=== PATIENT | male | born 1990 | race African-American/Black ===

== ENCOUNTER 2017-12-11 09:50 | Inpatient (IN) | payer OTHER ==
--- NOTE | 2017-12-11 10:28 | PDOC ---
History of Present Illness - General History Source: Patient Exam Limitations: No Limitations - History of Present Illness Initial Comments: 12/11/17 11:32 Patient is a 27 year old male with a significant past medical history of Cervical Spondylosis and instability, who was sent by physician to the ED with complaints of right hand numbness that began this morning. Patient reports having a herniated disk in his neck that he states has been affected sensation in his right hand since earlier this year. He reports waking up this morning with complete right hand numbness with a sensation that his hand was swollen with fluid, prompting him to call Dr. Donovan who advise him to come into the ED for Pre Op and further evaluations. 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 Denies chest pain, Sob. Denies nausea, vomiting. Denies fevers, chills. Denies tingling. Denies contact with sick individuals. Denies trauma to affected area. Denies any other symptoms. Allergies: None Social history: [place] in May 2017. Works as make up artist. Current smoker ( pack per day). Social alcohol use. Daily marijuana use. Surgical history: None PMD: Dr. Gutierrez Neurosurgery: Dr. Donovan <Reji Springer - Last Filed: 12/11/17 11:08> <Zohra Galan - Last Filed: 12/11/17 14:06> - General Chief Complaint: Revisit, Lab Variance Stated Complaint: PRE-OP Time Seen by Provider: 12/11/17 10:28 Past History <Reji Springer - Last Filed: 12/11/17 11:08> - Past Medical History Asthma: Yes COPD: No - Suicide/Smoking/Psychosocial Hx Smoking History: Current every day smoker Have you smoked in the past 12 months: Yes Number of Cigarettes Smoked Daily: 10 Information on smoking cessation initiated: No 'Breaking Loose' booklet given: 12/06/17 Hx Alcohol Use: Yes (social) Drug/Substance Use Hx: Yes Substance Use Type: Marijuana Hx Substance Use Treatment: Yes <Zohra Galan - Last Filed: 12/11/17 14:06> - Past Medical History Allergies/Adverse Reactions: Allergies Allergy/AdvReac Type Severity Reaction Status Date / Time No Known Allergies Allergy Verified 12/11/17 09:58 Home Medications: Ambulatory Orders Diclofenac Sodium [Diclofenac Sodium ER] 100 mg PO DAILY 12/06/17 Gabapentin 600 mg PO HS 12/06/17 Naproxen 250 mg PO PRN 12/06/17 Review of Systems - Review of Systems Able to Perform ROS?: Yes Comments:: 12/11/17 11:32 GENERAL/CONSTITUTIONAL: No fever or chills. No weakness. HEAD, EYES, EARS, NOSE AND THROAT: No change in vision. No ear pain or discharge. No sore throat. GASTROINTESTINAL: No nausea, vomiting, diarrhea or constipation. GENITOURINARY: No dysuria, frequency, or change in urination. CARDIOVASCULAR: No chest pain or shortness of breath. RESPIRATORY: No cough, wheezing, or hemoptysis. MUSCULOSKELETAL: +Right hand numbness. No joint or muscle swelling or pain. No neck or back pain. SKIN: No rash NEUROLOGIC: No headache, vertigo, loss of consciousness, or change in strength/ sensation. ENDOCRINE: No increased thirst. No abnormal weight change. HEMATOLOGIC/LYMPHATIC: No anemia, easy bleeding, or history of blood clots. ALLERGIC/IMMUNOLOGIC: No hives or skin allergy. All Other Systems: Reviewed and Negative <Reji Springer - Last Filed: 12/11/17 11:08> *Physical Exam - Vital Signs Last Vital Signs Temp Pulse Resp BP Pulse Ox 98.9 F 87 18 124/75 99 12/11/17 09:54 12/11/17 09:54 12/11/17 09:54 12/11/17 09:54 12/11/17 09:54 <Reji Springer - Last Filed: 12/11/17 11:08> - Vital Signs Last Vital Signs Temp Pulse Resp BP Pulse Ox 98.9 F 87 18 124/75 99 12/11/17 09:54 12/11/17 09:54 12/11/17 09:54 12/11/17 09:54 12/11/17 09:54 - Physical Exam Comments: GENERAL: Awake, alert, and fully oriented, in no acute distress HEAD: No signs of trauma EYES: PERRLA, EOMI, sclera anicteric, conjunctiva clear ENT: Auricles normal inspection, hearing grossly normal, nares patent, oropharynx clear without exudates. Moist mucosa NECK: Normal ROM, supple, no lymphadenopathy, JVD, or masses LUNGS: Breath sounds equal, clear to auscultation bilaterally. No wheezes, and no crackles HEART: Regular rate and rhythm, normal S1 and S2, no murmurs, rubs or gallops ABDOMEN: Soft, nontender, normoactive bowel sounds. No guarding, no rebound. No masses EXTREMITIES: Normal range of motion, no edema. No clubbing or cyanosis. No cords, erythema, or tenderness NEUROLOGICAL: Cranial nerves II through XII grossly intact. Normal speech, normal gait. Decreased sensation to the R hand, dec machine installer strength. Remainder of extremities with strength and sensation intact. SKIN: Warm, Dry, normal turgor, no rashes or lesions noted. SPINE: No step-offs. No midline tenderness. <Zohra Galan - Last Filed: 12/11/17 14:06> ED Treatment Course - LABORATORY CBC & Chemistry Diagram: 12/11/17 10:50 12/11/17 10:50 - ADDITIONAL ORDERS Additional order review: 12/11/17 10:50 RBC 4.97 MCV 86.6 MCHC 35.3 RDW 13.6 MPV 7.6 Neutrophils % 50.5 Lymphocytes % 35.1 Monocytes % 11.0 H Eosinophils % 2.5 Basophils % 0.9 <Reji Springer - Last Filed: 12/11/17 11:08> - LABORATORY CBC & Chemistry Diagram: 12/11/17 10:50 12/11/17 10:50 <Zohra Galan - Last Filed: 12/11/17 14:06> Medical Decision Making - Medical Decision Making 12/11/17 10:59 Case d/w Dr. Donovan, I will obtain stat MRI cervical spine and keep patient NPO in case he requires surgery today. D/w pathology tech, will fit him into the schedule so he can have the MRI today. 12/11/17 11:[address] Donovan. He requested c-collar. He is discussing with OR to book his procedure. 12/11/17 12:38 D/w Dr. Donovan. He would like to delay surgery, will start a course of decadron 4mg every 6 hours, then likely surgery on Tuesday (it is currently Tuesday). <Zohra Galan - Last Filed: 12/11/17 14:06> *DC/Admit/Observation/Transfer - Attestations Scribe Attestion: 12/11/17 11:32 Documentation prepared by Reji Springer, acting as medical file clerk for Zohra Galan MD. <Reji Springer - Last Filed: 12/11/17 11:08> - Discharge Dispostion Decision to Admit order: Yes <Zohra Galan - Last Filed: 12/11/17 14:06> Diagnosis at time of Disposition: Cervical spondylosis with radiculopathy - Discharge Dispostion Condition at time of disposition: Stable
[2017-12-11] MEDS: SODIUM CHLORIDE 1,000 ML IV SCH (10:49)
[2017-12-11 10:56] LABS: BASO % 0.9 % (0-2.0); EOS % 2.5 % (0-4.5); HEMOGLOBIN 15.2 GM/dL (11.7-16.9); LYMPH % 35.1 % (8-40); MCH 30.6 pg (25.7-33.7); MCHC 35.3 g/dl (32.0-35.9); MEAN CELL VOLUME 86.6 fl (80-96); MEAN PLT VOLUME 7.6 fl (7.5-11.1); NEUT % 50.5 % (42.8-82.8); PLATELET COUNT 338 K/MM3 (134-434); RBC 4.97 M/mm3 (4.00-5.60); RDW 13.6 % (11.9-15.9); WHITE BLOOD COUNT 7.4 K/mm3 (4.0-10.0)
[2017-12-11 11:18] LABS: ALBUMIN 4.3 g/dl (3.4-5.0); ANION GAP 6 (8-16); BILIRUBIN,TOTAL 0.4 mg/dL (0.2-1.0); BLOOD UREA NITROGEN 18 mg/dL (7-18); CALCIUM 8.8 mg/dL (8.5-10.1); CHLORIDE 104 mmol/L (98-107); CO2 28 mmol/L (21-32); CREATININE 0.9 mg/dL (0.7-1.3); GLUCOSE,RANDOM 83 mg/dL (74-106); SGPT/ALT 46 U/L (12-78); SODIUM 138 mmol/L (136-145); TOT PROT 7.8 g/dl (6.4-8.2)
[2017-12-11 11:25] LABS: ALK PHOS 52 U/L (45-117)
[2017-12-11 11:26] LABS: POTASSIUM 4.3 mmol/L (3.5-5.1); SGOT/AST 32 U/L (15-37)
[2017-12-11 11:31] LABS: PROTHROMBIN TIME (PATIENT) 11.3 SEC (9.7-13.0)
[2017-12-11 11:34] LABS: ACTIVATED PTT 30.7 SECONDS (26.9-34.4)
[2017-12-11] MEDS ORDERED: DEXAMETHASONE SOD PHOSPHATE 4 MG/1 ML VIAL IVPUSH ONE (12:33)
[2017-12-11] MEDS ORDERED: DEXAMETHASONE SOD PHOSPHATE 4 MG/1 ML VIAL ONE ×2 (12:47→12:48)
--- NOTE | 2017-12-11 14:32 | HP ---
CHIEF COMPLAINT: numbness and weakness in right upper limb. PCP: jt HISTORY OF PRESENT ILLNESS: 27 y/o male with past medical h/o fall in 2016 from 5th floor was sent in by Dr oconnor for worsening numbness and weakness in right upper limb. Patient states that he was tingling sensation in is R upper linm from 2016 whic is getting worse, he started noticiing numbness around 6 months ago which is also getting worse. Numbness and tingling gets worse when he lies down. This morning he notices a weakness in his right upper limb. He also reports that he alos have some numbness in right lower limb but denies weakness in rigyht lower limb. Denies urine and fecal incontinence. 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 ER course was notable for: (1)cbc, cmp, pt/inr (2)MRI (3) Recent Travel: no PAST MEDICAL HISTORY: Asthma last episode 2 years ago, chronic pain in shoulder , elbow, knee and lower back for which he goes to PT PAST SURGICAL HISTORY: none Social History: Smokin/2 pck a day since mar 2017 Alcohol: social Drugs: daily marijuana use 3- 4 times a day Family History: not relevent Allergies No Known Allergies Allergy (Verified 12/11/17 09:58) HOME MEDICATIONS: Home Medications Medication Instructions Recorded Diclofenac Sodium [Diclofenac 100 mg PO DAILY 12/06/17 Sodium ER] Gabapentin 600 mg PO HS 12/06/17 Naproxen 250 mg PO PRN 12/06/17 REVIEW OF SYSTEMS CONSTITUTIONAL: Absent: fever, chills, diaphoresis, generalized weakness, malaise, loss of appetite, weight change HEENT: Absent: rhinorrhea, nasal congestion, throat pain, throat swelling, difficulty swallowing, mouth swelling, CARDIOVASCULAR: Absent: chest pain, syncope, palpitations, irregular heart rate, lightheadedness , peripheral edema RESPIRATORY: Absent: cough, shortness of breath, dyspnea with exertion, GASTROINTESTINAL: Absent: abdominal pain, abdominal distension, nausea, vomiting, constipation, GENITOURINARY: Absent: dysuria, frequency, urgency, SKIN: Absent: rash, itching, pallor HEMATOLOGIC/IMMUNOLOGIC: Absent: easy bleeding, easy bruising, ENDOCRINE: Absent: unexplained weight gain, unexplained weight loss, NEUROLOGIC: Absent: headache,dizziness, unsteady gait, seizure, mental status changes, bladder or bowel incontinence PSYCHIATRIC: Absent: anxiety, depression, PHYSICAL EXAMINATION Vital Signs - 24 hr 12/11/17 12/11/17 09:54 12:13 Temperature 98.9 F Pulse Rate 87 Pulse Rate [ 72 Apical] Respiratory 18 17 Rate Blood Pressure 124/75 Blood Pressure 113/72 [Left Arm] O2 Sat by Pulse 99 100 Oximetry (%) GENERAL: Awake, alert, and fully oriented, in no acute distress. wearing a cervical collar HEAD: Normal with no signs of trauma. EYES: Pupils equal, round and reactive to light, extraocular movements intact, EARS, NOSE, THROAT: oropharynx clear without exudates. Moist mucous membranes. NECK: Normal range of motion, supple without lymphadenopathy, LUNGS: Breath sounds equal, clear to auscultation bilaterally. No wheezes, and no crackles. No accessory muscle use. HEART: Regular rate and rhythm, normal S1 and S2 without murmur, rub or gallop. ABDOMEN: Soft, nontender, not distended, normoactive bowel sounds, no guarding, no rebound, no masses. MUSCULOSKELETAL: Normal range of motion at all joints. No bony deformities UPPER EXTREMITIES: 2+ pulses, warm, well-perfused. No cyanosis. No clubbing. No peripheral edema. LOWER EXTREMITIES: warm, No calf tenderness. No peripheral edema. NEUROLOGICAL: Cranial nerves II-XII intact. Normal speech. power R upper and lower limb slightly less then left. Left b/l upper and lower limb power 5/5. sensation to touch less on right upper limb. PSYCHIATRIC: Cooperative. Good eye contact. SKIN: Warm, dry, Laboratory Results - last 24 hr 12/11/17 12/11/17 12/11/17 10:50 10:50 10:50 WBC 7.4 RBC 4.97 Hgb 15.2 Hct 43.0 MCV 86.6 MCH 30.6 MCHC 35.3 RDW 13.6 Plt Count 338 MPV 7.6 Neutrophils % 50.5 Lymphocytes % 35.1 Monocytes % 11.0 H Eosinophils % 2.5 Basophils % 0.9 Nucleated RBC % 0 PT with INR 11.30 INR 1.00 PTT (Actin FS) 30.7 Sodium 138 Potassium 4.3 Chloride 104 Carbon Dioxide 28 Anion Gap 6 L BUN 18 Creatinine 0.9 Creat Clearance w eGFR > 60 Random Glucose 83 Calcium 8.8 Total Bilirubin 0.4 AST 32 ALT 46 Alkaline Phosphatase 52 Total Protein 7.8 Albumin 4.3 Blood Type Antibody Screen 12/11/17 12/11/17 10:50 12:20 WBC RBC Hgb Hct MCV MCH MCHC RDW Plt Count MPV Neutrophils % Lymphocytes % Monocytes % Eosinophils % Basophils % Nucleated RBC % PT with INR INR PTT (Actin FS) Sodium Potassium Chloride Carbon Dioxide Anion Gap BUN Creatinine Creat Clearance w eGFR Random Glucose Calcium Total Bilirubin AST ALT Alkaline Phosphatase Total Protein Albumin Blood Type AB POSITIVE AB POSITIVE Antibody Screen Negative Negative ASSESSMENT/PLAN: 27 y/o male with past medical h/o fall in 2016 from 5th floor was sent in by Dr oconnor for worsening numbness and weakness in right upper limb. Cervical spondylosis with rediculopathy with weakness in right upper limb Neurosurgery consulted Dr tai. NS advised for dexamethasope 4mg q6h. Patient is posted for surgery on tuesday. Cervical collar. BGM as patinet is on dexa. Pain control with acetaminopphen. type and screen. INR 1.0 Tobacco dependence. smokes 1/2 a day nicotine patch 14mg Fluid: orally allowed electrolyte : no abnormality. nutrition: regular diet dvt pro: scd gi pro: [place] dispo: med surg. Visit type - Emergency Visit Emergency Visit: Yes ED Registration Date: 12/11/17 Care time: The patient presented to the Emergency Department on the above date and was hospitalized for further evaluation of their emergent condition. - New Patient This patient is new to me today: Yes Date on this admission: 12/11/17 - Critical Care Critical Care patient: No Hospitalist Screening - Colonoscopy Questionnaire Colonoscopy Questionnaire: Colonoscopy Questionnaire - Patient: 50 - 75 years old and never had a screening colonoscopy: Unknown History of colon or rectal polyps, or CA: Unknown History of IBD, Crohn's disease or UC: Unknown History of abdominal radiation therapy as a child: Unknown - Relative: 1 with colon or rectal CA, or polyps at age 60 or younger: Unknown Colon or rectal CA diagnosed at age 45 or younger: Unknown Multiple relatives with colon or rectal CA: Unknown - Outcome: Screening Result: Negative Screen
[2017-12-11] MEDS ORDERED: ACETAMINOPHEN 325 MG TABLET (FP) PO PRN (14:52)
[2017-12-11] MEDS: DEXAMETHASONE SOD PHOSPHATE 4 MG/1 ML VIAL IVPUSH SCH ×2 (15:41→20:32)
[2017-12-11] MEDS ORDERED: NICOTINE 14 MG/24 HOURS TOPICAL PATCH TD SCH (15:45)
--- NOTE | 2017-12-11 17:15 | PN ---
Teaching Attending Note Name of Resident: Avinash Raymundo ATTENDING PHYSICIAN STATEMENT I saw and evaluated the patient. I reviewed the resident's note and discussed the case with the resident. I agree with the resident's findings and plan as documented. SUBJECTIVE:27yo M with PMH cervical spondylosis s/p mechanical fall off 5th floor of scaffolding in 2015 presenting with worsening numbness and weakness of the RUE. sx progressively worsening over the past 6 months with no improvement with PT. had MRI done showing disc herniation C3-C6. as per pt had EMG studies showing reduced conduction. Pt was referred to Dr Donovan who planned surgery for tuesday (12/13) but informed him to come to ER if pain or numbness worsened which it did starting yesterday. denies CP, SOB, fever, chills, N/V/C/D, bowel/ bladder incontinence, vision changes OBJECTIVE: Last Vital Signs Temp Pulse Resp BP Pulse Ox 98.3 F 66 17 128/74 100 12/11/17 15:05 12/11/17 15:05 12/11/17 15:05 12/11/17 15:05 12/11/17 15:05 General NAD HEENT EOMI, c-collar in place CV S1 S2 RRR no murmur/rub/gallop Lungs CTA B/L no wheezing/rales/rhonchi Abdomen soft NT/ND Neuro CN grossly intact (unable to assess CN II and XII) decreased sensation in RUE strength 4/5 in extension and flexion of RUE. strength and sensation intact in LUE ASSESSMENT AND PLAN: 27yo M with PMH continuous polysubstance use and cervical spondylosis after work accident presented to the ER with worsening numbness and pain in RUE 1. RUE radiculopathy- due to C3-C6 disc bulge due to 2016 injury. C-collar placed. start dex 4mg Q6H. scheduled for surgery on 12/13. will start BGM to monitor sugars while on high dose steroids 2. Continuous polysubstance use- (THC and tobacco). counseled on risks assoc with continued use. refused nicotine patch 3. Chronic pain from work related injury- will cont iwth gabapentin. would hold NSAID with pending surgery 4. DVT ppx- hep sq
[2017-12-11 17:39] VITALS: BMI 24.2
[2017-12-11] MEDS: HEPARIN NA (PORCINE) 5,000 UNITS/ML 1ML VIAL SQ SCH (21:15)
[2017-12-11] MEDS: RANITIDINE HCL 150 MG TABLET (FP) PO SCH (21:15)
[2017-12-11] MEDS: GABAPENTIN 300 MG CAPSULE (FP) PO SCH (21:15)
--- NOTE | 2017-12-11 22:02 | EKG ---
Test Reason : Blood Pressure : / mmHG Vent. Rate : 072 BPM Atrial Rate : 072 BPM P-R Int : 160 ms QRS Dur : 080 ms QT Int : 374 ms P-R-T Axes : 071 082 052 degrees QTc Int : 409 ms NORMAL SINUS RHYTHM POSSIBLE LEFT ATRIAL ENLARGEMENT BORDERLINE ECG NO PREVIOUS ECGS AVAILABLE Confirmed by NOHEMI LACY MD ([id number]) on 12/11/2017 10:02:01 PM Referred By: Confirmed By:NOHEMI LACY MD
[2017-12-12] MEDS: SODIUM CHLORIDE 1,000 ML IV SCH ×2 (02:28→10:25)
[2017-12-12] MEDS: DEXAMETHASONE SOD PHOSPHATE 4 MG/1 ML VIAL IVPUSH SCH ×4 (03:25→21:57)
[2017-12-12] MEDS: HEPARIN NA (PORCINE) 5,000 UNITS/ML 1ML VIAL SQ SCH ×3 (05:23→21:57)
[2017-12-12] MEDS ORDERED: CHLORHEXIDINE GLUCONATE 4% CLEANSER FOR DECOLONIZATION TP SCH ×2 (09:00→22:00)
[2017-12-12 09:02] LABS: MAGNESIUM 2.2 mg/dL (1.8-2.4); PHOSPHOROUS 3.1 mg/dL (2.5-4.9)
[2017-12-12] MEDS ORDERED: CHLORHEXIDINE GLUCONATE 4% CLEANSER FOR DECOLONIZATION TP ONE (10:00)
[2017-12-12] MEDS ORDERED: RANITIDINE HCL 150 MG TABLET (FP) PO SCH (10:00)
[2017-12-12] MEDS: RANITIDINE HCL 150 MG TABLET (FP) PO SCH ×2 (11:04→21:57)
--- NOTE | 2017-12-12 13:51 | CONSULT ---
Consult - text type - Consultation Consultation Note: NEUROSURGERY CONSULTATION Wily Krishnan is a 27 year old male who was planned for 2 level Cervical corpectomies and spinal cord decompression tomorrow for Cervical spondylosis and acute disc herniations after a fall from a scaffold last year. Over the past few days, he has manifested significant progression of his upper extremity numbness, pain and loss of fine motor skills as well as weakness. He was advised to come to the ER when he lost use of his Right hand on the morning of Monday December 11, 2017. MRI shows progression of his acute disc herniations and he was admitted and placed on IV steroids and placed into a Cervical collar. He has improved slightly in his Right hand but developed new paresthesias in his Left hand. I reviewed his clinical course, imaging and surgical plans in great detail once again. I answered a list of new questions which he prepared and we are in agreement with plans for surgery on Wednesday December 13, 2017.
--- NOTE | 2017-12-12 14:33 | PN ---
Physical Exam: SUBJECTIVE: Patient seen and examined at bedside. Complains of constant tingling of the right hand and intermittent tingling of all 3 other limbs. No other complaints. OBJECTIVE: Vital Signs Period Temp Pulse Resp BP Sys/[place] Pulse Ox Last 24 Hr 98.2 F-98.7 F 66-90 17-20 118-136/74-87 95-100 Gen: Lying in bed, in NAD HEENT: NCAT, PERRLA, EOMI Neck: supple, no JVD Cardiac: RRR, normal S1S2, no murmurs appreciated Pulm: CTA b/l Abd: soft, nontender, nondistended. Ext: 2+ pulses, no edema Neuro: CN 2-12 intact, strength 5/5 throughout, sensation preserved throughout, however with parasthesia in RUE Laboratory Results - last 24 hr 12/11/17 12/12/17 12/12/17 19:55 05:22 07:42 POC Glucometer 131 Phosphorus 3.1 Magnesium 2.2 HIV 1&2 Antibody Screen Negative HIV P24 Antigen Negative Active Medications Generic Name Dose Route Start Last Admin Trade Name Freq PRN Reason Stop Dose Admin Acetaminophen 650 mg 12/11/17 14:52 Tylenol - PO Q6H PRN PAIN LEVEL 1-5 Chlorhexidine Gluconate 1 applic 12/12/17 22:00 Hibiclens For Decolonization - TP HS RICHARD Dexamethasone Sodium Phosphate 4 mg 12/11/17 15:45 12/12/17 09:06 Decadron Injection - IVPUSH 4 mg Q6H-IV RICHARD Administration Gabapentin 600 mg 12/11/17 22:00 12/11/17 21:15 Neurontin - PO 600 mg HS RICHARD Administration Heparin Sodium (Porcine) 5,000 unit 12/11/17 22:00 12/12/17 05:23 Heparin - SQ 5,000 unit TID RICHARD Administration Sodium Chloride 1,000 mls @ 125 mls/hr 12/11/17 10:45 12/12/17 10:25 Normal Saline - IV 125 mls/hr ASDIR RICHARD Administration Ranitidine HCl 150 mg 12/11/17 22:00 12/12/17 11:04 Zantac - PO Not Given BID RICHARD ASSESSMENT/PLAN: Pt is a 27 y/o M with PMH fall from 5th floor scaffoldin in 2015 who presents to ED sent by Dr. Donovan for C-spine surg on (12/13/2017). Pt is admitted for surg. #Cervical Spondylosis with radiculopathy -Symptommatic with C-spine MRI showing C3-C6 disease -for surg on 12/13/2017 -preop labs drawn -Dexamethasone -cervical collar (pt is noncompliant) -tylenol #Tobacco dependence -1/2 ppd active smoker -nicotine patch #FEN -NS 125 -lytes wnl -Reg diet NPO after midnight #PPx -Hep SubQ #Dispo -admitted to [facility] for C-spine surg Zen Acuña MD PGY-1 IM Visit type - Emergency Visit Emergency Visit: No - New Patient This patient is new to me today: Yes Date on this admission: 12/12/17 - Critical Care Critical Care patient: No - Discharge Referral Referred to [facility] No
--- NOTE | 2017-12-12 15:51 | SPA.PREOP ---
- PRE-OP NOTE Dx: cervical splondylosis Planned Procedure: corpectomies of C4-C5 Surgeon: Harman Donovan Consent: To Obtained after surgeon explained all risks, benefits and alternatives and Opportunity for questions. Last Vital Signs Temp Pulse Resp BP Pulse Ox 98.7 F 74 20 136/74 99 12/12/17 10:00 12/12/17 10:00 12/12/17 10:00 12/12/17 10:00 12/12/17 09:00 Lab Results WBC 7.4 K/mm3 (4.0-10.0) 12/11/17 10:50 RBC 4.97 M/mm3 (4.00-5.60) 12/11/17 10:50 Hgb 15.2 GM/dL (11.7-16.9) 12/11/17 10:50 Hct 43.0 % (35.4-49) 12/11/17 10:50 MCV 86.6 fl (80-96) 12/11/17 10:50 MCHC 35.3 g/dl (32.0-35.9) 12/11/17 10:50 RDW 13.6 % (11.9-15.9) 12/11/17 10:50 Plt Count 338 K/MM3 (134-434) 12/11/17 10:50 Sodium 138 mmol/L (136-145) 12/11/17 10:50 Potassium 4.3 mmol/L (3.5-5.1) 12/11/17 10:50 Chloride 104 mmol/L (98-107) 12/11/17 10:50 Carbon Dioxide 28 mmol/L (21-32) 12/11/17 10:50 Anion Gap 6 (8-16) L 12/11/17 10:50 BUN 18 mg/dL (7-18) 12/11/17 10:50 Creatinine 0.9 mg/dL (0.7-1.3) 12/11/17 10:50 Random Glucose 83 mg/dL (74-106) 12/11/17 10:50 Calcium 8.8 mg/dL (8.5-10.1) 12/11/17 10:50 Blood Type AB POSITIVE 12/11/17 12:20 Antibody Screen Negative 12/11/17 12:20 INR 1.00 (0.82-1.09) 12/11/17 10:50 - ASSESSMENT/PLAN 1. Make NPO after midnight except po meds 2. GI/DVT PPX 3. Medical optimization / clearance Problem List - Problems (1) Cervical spondylosis with radiculopathy Assessment/Plan: Plan for OR tomorrow C4 & C5 corpectomies 1. Make NPO after midnight except po meds 2. GI/DVT PPX 3. Medical optimization / clearance Code(s): M47.22 - OTHER SPONDYLOSIS WITH RADICULOPATHY, CERVICAL REGION
--- NOTE | 2017-12-12 17:18 | PN ---
Teaching Attending Note Name of Resident: Zen Acuña ATTENDING PHYSICIAN STATEMENT I saw and evaluated the patient. I reviewed the resident's note and discussed the case with the resident. I agree with the resident's findings and plan as documented. SUBJECTIVE:continues to have numbness and tingling in his R hand and has intermittent in feet. last a few seconds and happens sporadically. denies CP, SOB, fever, chills, N/V/C/D OBJECTIVE: Last Vital Signs Temp Pulse Resp BP Pulse Ox 97.9 F 78 20 123/57 99 12/12/17 16:15 12/12/17 16:15 12/12/17 16:15 12/12/17 16:15 12/12/17 09:00 General NAD HEENT EOMI, c-collar in place ASSESSMENT AND PLAN: 27yo M with PMH continuous polysubstance use and cervical spondylosis after work accident presented to the ER with worsening numbness and pain in RUE 1. RUE radiculopathy- due to C3-C6 disc bulge due to 2016 injury. C-collar placed. NPO tonight for surgery in the AM. on dex 4mg Q6H. BGM monitoring while on high dose steroids. 2. Continuous polysubstance use- (THC and tobacco). counseled on risks assoc with continued use. refused nicotine patch 3. Chronic pain from work related injury- will cont iwth gabapentin. would hold NSAID with pending surgery 4. DVT ppx- hep sq
[2017-12-12] MEDS: GABAPENTIN 300 MG CAPSULE (FP) PO SCH (21:57)
[2017-12-13] MEDS: DEXAMETHASONE SOD PHOSPHATE 4 MG/1 ML VIAL IVPUSH SCH ×2 (03:55→14:31)
[2017-12-13] MEDS: HEPARIN NA (PORCINE) 5,000 UNITS/ML 1ML VIAL SQ SCH ×3 (05:15→22:29)
[2017-12-13] MEDS ORDERED: GENTAMICIN SO4 80 MG/2 ML VIAL ONE (07:30)
[2017-12-13] MEDS ORDERED: LIDOCAINE 1%/EPI 1:100000 (20 ML MULTI DOSE VIAL) ONE (07:30)
[2017-12-13] MEDS ORDERED: THROMBIN (BOVINE) 20,000 UNIT VIAL TP ONE (07:30)
[2017-12-13] MEDS ORDERED: MIDAZOLAM HCL 2 MG/2 ML SINGLE DOSE VIAL ONE (07:50)
[2017-12-13] MEDS ORDERED: ONDANSETRON 4 MG/2 ML VIAL ONE (08:28)
[2017-12-13] MEDS ORDERED: KETOROLAC TROMETHAMINE 30 MG/1 ML VIAL ONE (08:28)
[2017-12-13] MEDS ORDERED: PROPOFOL 20 ML ONE ×2 (08:28)
[2017-12-13] MEDS ORDERED: DEXAMETHASONE SOD PHOSPHATE 4 MG/1 ML VIAL ONE (08:28)
[2017-12-13] MEDS ORDERED: ROCURONIUM BROMIDE 50 MG/5 ML VIAL ONE ×3 (08:28→09:31)
[2017-12-13] MEDS ORDERED: fentaNYL CITRATE 250 MCG/5 ML VIAL ONE ×2 (08:28→09:32)
[2017-12-13] MEDS ORDERED: ceFAZolin SODIUM 1 GM VIAL IVPB ONE (08:50)
[2017-12-13] MEDS ORDERED: VANCOMYCIN 1,000 MG VIAL (RESTRICTED TO ID ONLY) IVPB ONE (08:56)
[2017-12-13] MEDS ORDERED: DESFLURANE GAS 240 ML BOTTLE IH ONE (10:03)
[2017-12-13] MEDS ORDERED: NEOSTIGMINE METHYLSULFATE 0.5 MG/ML - 10 ML MDV ONE (10:27)
[2017-12-13] MEDS ORDERED: GLYCOPYRROLATE 0.2 MG/1 ML VIAL ONE ×2 (10:27)
[2017-12-13] MEDS ORDERED: LACTATED RINGERS SOLUTION 1,000 ML IV SCH ×2 (11:00→11:15)
[2017-12-13] MEDS ORDERED: oxyCODONE HCL 5 MG TABLET PO PRN ×3 (11:02→11:03)
[2017-12-13] MEDS ORDERED: ONDANSETRON 4 MG/2 ML VIAL IVPUSH PRN (11:03)
[2017-12-13] MEDS ORDERED: PROMETHAZINE HCL 25 MG/1 ML VIAL IVPB PRN (11:03)
[2017-12-13] MEDS ORDERED: ACETAMINOPHEN 325 MG TABLET (FP) PO PRN (11:19)
[2017-12-13] MEDS: HYDROmorphone *PCA* 10MG/50ML DISP.SYRIN PCA SCH (11:37)
--- NOTE | 2017-12-13 12:38 | OP ---
Operative Note - Note: Operative Date: 12/13/17 Pre-Operative Diagnosis: Cervical spodylosis with acute disc herniations and progressive myelopathy Operation: Cervical 4 & 5 corpectomies and samaritan of lordosis with reconstruction using PEEK cage insertion and anterior plating Post-Operative Diagnosis: Same as Pre-op Surgeon: Harman Donovan Junior Recruiter: Aly Santizo Anesthesiologist/FIRER PORTABLE BOILER: Polo Almeida Anesthesia: General Estimated Blood Loss (mls): 50 Fluid Volume Replaced (mls): 800 Operative Report Dictated: Yes
--- NOTE | 2017-12-13 12:39 | SURG ---
Surgery Drain Cleaner Note Drain Cleaner: Aly Santizo PA-C Date of Service: 12/13/17 Diagnosis: Cervical spodylosis with acute disc herniations and progressive myelopathy Procedure: Cervical 4 & 5 corpectomies and jainism of lordosis with reconstruction using PEEK cage insertion and anterior plating I was present for the entirety of the operative procedure. For further detail, please refer to operative report. Visit type - Case Type Case Type: ED Admission - New patient This patient is new to me today: Yes Date on this admission: 12/13/17
[2017-12-13] MEDS: SODIUM CHLORIDE 1,000 ML IV SCH ×3 (13:15→14:31)
[2017-12-13] MEDS: RANITIDINE HCL 150 MG TABLET (FP) PO SCH ×2 (14:31→22:29)
--- NOTE | 2017-12-13 17:35 | PN ---
Teaching Attending Note Name of Resident: Zen Acuña ATTENDING PHYSICIAN STATEMENT I saw and evaluated the patient. I reviewed the resident's note and discussed the case with the resident. I agree with the resident's findings and plan as documented with exceptions below. SUBJECTIVE: Patient seen and examined. From OR and doing well. OBJECTIVE: Vital Signs Period Temp Pulse Resp BP Sys/Lemos Pulse Ox Last 24 Hr 97.5 F-99.0 F 69-98 10-18 116-158/67-92 96-100 Intake & Output 12/10/17 12/11/17 12/12/17 12/13/17 23:59 23:59 23:59 23:59 Intake Total 500 2625 2975 Output Total 145 Balance 500 2625 2830 Weight 164 lb General: lying in bed, with C-collar Neuro: AAox3, power 5/5, facial symmetry, Abdomen:soft, NT, ND Extremities: no edema Home Medication List Medication Instructions Recorded Confirmed Type Diclofenac Sodium [Diclofenac 100 mg PO DAILY 12/06/17 12/11/17 History Sodium ER] Gabapentin 600 mg PO HS 12/06/17 12/11/17 History Naproxen 250 mg PO PRN 12/06/17 12/11/17 History Home Medications Medication Instructions Recorded Diclofenac Sodium [Diclofenac 100 mg PO DAILY 12/06/17 Sodium ER] Gabapentin 600 mg PO HS 12/06/17 Naproxen 250 mg PO PRN 12/06/17 Active Medications Acetaminophen (Tylenol -) 650 mg PO Q6H PRN PRN Reason: PAIN LEVEL 1-5 Gabapentin (Neurontin -) 600 mg PO [facility] Heparin Sodium (Porcine) (Heparin -) 5,000 unit SQ TID [facility] Last Admin: 12/13/17 15:00 Dose: 5,000 unit Hydromorphone HCl (Dilaudid Compress Engineer -) 10 mg SINGLE WIRE SAW OPERATOR SINGLE WIRE SAW OPERATOR RICHARD; Protocol Stop: 12/20/17 11:04 Last Admin: 12/13/17 11:37 Dose: 10 mg Cefazolin Sodium 1 gm/ (Dextrose) 50 mls @ 100 mls/hr IVPB Q8H-IV RICHARD Stop: 12/14/17 02:29 Sodium Chloride (Normal Saline -) 1,000 mls @ 125 mls/hr IV ASDIR RICHARD Last Admin: 12/13/17 14:30 Dose: Not Given Oxycodone HCl (Roxicodone -) 5 mg PO Q4H PRN PRN Reason: PAIN LEVEL 1-5 Oxycodone HCl (Roxicodone -) 10 mg PO Q4H PRN PRN Reason: PAIN LEVEL 6-10 Ranitidine HCl (Zantac -) 150 mg PO BID [facility] Laboratory Results - last 24 hr 12/13/17 05:55 POC Glucometer 129 ASSESSMENT AND PLAN: 27yo M with PMH continuous polysubstance use and cervical spondylosis after work accident presented to the ER with worsening numbness and pain in RUE - RUE radiculopathy- due to C3-C6 disc bulge due to 2016 injury. s/p surgery today. C-collar,SINGLE WIRE SAW OPERATOR for pain control. Activity and wound care per spine surgery. - Continuous polysubstance use- (THC and tobacco). Smoking cessation counseling. Nicotine patch if patient prefers. - Chronic pain from work related injury- will cont with gabapentin. would hold NSAID with pending surgery - DVT ppx- hep sq, per spine surgery -Dispo - per spine surgery.
[2017-12-13] MEDS ORDERED: BENZOCAINE/MENTH/CETYLPYRD CL 1 EACH LOZENGE MM PRN (18:23)
[2017-12-13] MEDS ORDERED: ceFAZolin SODIUM 1 GM VIAL ONE ×2 (18:29→20:18)
[2017-12-13] MEDS ORDERED: DEXTROSE 5%-WATER - 50 ML IVPB ONE ×2 (18:29→20:18)
[2017-12-13] MEDS: CEFAZOLIN 1 GM in DEXTROSE 5%-WATER - 50 ML IVPB SCH (18:43)
--- NOTE | 2017-12-13 18:56 | PN ---
Physical Exam: SUBJECTIVE: Patient seen and examined at bedside. No acute events. For surg today. OBJECTIVE: Vital Signs Period Temp Pulse Resp BP Sys/Lemos Pulse Ox Last 24 Hr 97.5 F-99.0 F 69-98 10-18 116-158/67-92 96-100 Exam unchanged Gen: Lying in bed, in NAD HEENT: NCAT, PERRLA, EOMI Neck: supple, no JVD Cardiac: RRR, normal S1S2, no murmurs appreciated Pulm: CTA b/l Abd: soft, nontender, nondistended. Ext: 2+ pulses, no edema Neuro: CN 2-12 intact, strength 5/5 throughout, sensation preserved throughout, however with parasthesia in RUE Laboratory Results - last 24 hr 12/13/17 05:55 POC Glucometer 129 Active Medications Generic Name Dose Route Start Last Admin Trade Name Freq PRN Reason Stop Dose Admin Acetaminophen 650 mg 12/13/17 11:19 Tylenol - PO Q6H PRN PAIN LEVEL 1-5 Benzocaine/Menthol 1 each 12/13/17 18:23 Cepacol Lozenge - MM Q2H PRN SORE THROAT Gabapentin 600 mg 12/13/17 22:00 Neurontin - PO HS RICHARD Heparin Sodium (Porcine) 5,000 unit 12/13/17 14:00 12/13/17 15:00 Heparin - SQ 5,000 unit TID RICHARD Administration Hydromorphone HCl 10 mg 12/13/17 11:15 12/13/17 11:37 Dilaudid Hob Grinder - BOAT DISPATCHER 12/20/17 11:04 10 mg BOAT DISPATCHER RICHARD Administration Protocol Cefazolin Sodium 1 gm/ 50 mls @ 100 mls/hr 12/13/17 18:00 12/13/17 18:43 Dextrose IVPB 12/14/17 02:29 100 mls/hr Q8H-IV RICHARD Administration Sodium Chloride 1,000 mls @ 125 mls/hr 12/13/17 11:19 12/13/17 14:30 Normal Saline - IV Not Given ASDIR RICHARD Oxycodone HCl 5 mg 12/13/17 11:02 Roxicodone - PO Q4H PRN PAIN LEVEL 1-5 Oxycodone HCl 10 mg 12/13/17 11:02 Roxicodone - PO Q4H PRN PAIN LEVEL 6-10 Ranitidine HCl 150 mg 12/13/17 22:00 Zantac - PO BID [facility] ASSESSMENT/PLAN: Pt is a 27 y/o M with PMH fall from 5th floor scaffoldin in 2015 who presents to ED sent by Dr. Donovan for C-spine surg on (12/13/2017). Pt is admitted for surg. #Cervical Spondylosis with radiculopathy -Symptommatic with C-spine MRI showing C3-C6 disease -for surg on 12/13/2017 -preop labs drawn -Dexamethasone -cervical collar (pt is noncompliant) -tylenol -for surgery today #Tobacco dependence -1/2 ppd active smoker -nicotine patch #FEN -NS 125 -lytes wnl -Reg diet NPO after midnight #PPx -Hep SubQ #Dispo -admitted to [facility] for C-spine surg Zen Acuña MD PGY-1 IM Visit type - Emergency Visit Emergency Visit: No - New Patient This patient is new to me today: No - Critical Care Critical Care patient: No - Discharge Referral Referred to [facility] Med P.C.: No
[2017-12-13] MEDS ORDERED: GABAPENTIN 300 MG CAPSULE (FP) PO SCH (22:00)
[2017-12-14] MEDS: SODIUM CHLORIDE 1,000 ML IV SCH (02:02)
[2017-12-14] MEDS: CEFAZOLIN 1 GM in DEXTROSE 5%-WATER - 50 ML IVPB SCH (02:02)
[2017-12-14] MEDS: HYDROmorphone *PCA* 10MG/50ML DISP.SYRIN PCA SCH ×2 (03:04→11:20)
[2017-12-14] MEDS: HEPARIN NA (PORCINE) 5,000 UNITS/ML 1ML VIAL SQ SCH ×2 (06:29→13:12)
[2017-12-14 07:01] LABS: CHLORIDE 103 mmol/L (98-107); POTASSIUM 3.7 mmol/L (3.5-5.1); SODIUM 138 mmol/L (136-145)
[2017-12-14 07:22] LABS: BASO % 0.1 % (0-2.0); HEMATOCRIT 37.1 % (35.4-49); HEMOGLOBIN 12.8 GM/dL (11.7-16.9); LYMPH % 15.3 % (8-40); MCH 29.9 pg (25.7-33.7); MCHC 34.4 g/dl (32.0-35.9); MEAN CELL VOLUME 87.1 fl (80-96); MEAN PLT VOLUME 8.3 fl (7.5-11.1); MONO % 9.5 % (3.8-10.2); NEUT % 75.1 % (42.8-82.8); PLATELET COUNT 298 K/MM3 (134-434); RBC 4.26 M/mm3 (4.00-5.60); RDW 13.6 % (11.9-15.9); WHITE BLOOD COUNT 18.3 K/mm3 (4.0-10.0)
[2017-12-14 07:38] LABS: ANION GAP 9 (8-16); BLOOD UREA NITROGEN 16 mg/dL (7-18); CALCIUM 8.5 mg/dL (8.5-10.1); CO2 26 mmol/L (21-32); CREATININE 0.8 mg/dL (0.7-1.3); GLUCOSE,RANDOM 100 mg/dL (74-106)
--- NOTE | 2017-12-14 08:49 | PN ---
Progress Note (short form) - Note Progress Note: POD #1 Alert. Sitting up in bed. Wearing c-collar as instructed. C/o incisional tenderness. Adequate pain control via prn meds. Prior to surgery c/o neck pain with RUE pain and weakness (myelopathic). Currently, he states the RUE pain/ weakness have resolved. Only has a little numbness to tip of 4th digit on right hand. He's been oob and ambulating unassisted. Voiding spontaneously. Tolerating PO diet. Wants to go home today. Deneis n/v/f/c, dysphagia, hoarsness, CP, SOB. Last Vital Signs Temp Pulse Resp BP Pulse Ox 98.2 F 66 18 143/84 100 12/14/17 06:42 12/14/17 06:42 12/14/17 06:42 12/14/17 06:42 12/13/17 21:00 CBC, BMP 12/14/18 06:00 12/14/17 06:00 DEBORAH TREND 12/13/18 12/13/12/13/1718 14:00 19:18 22:53 06:43 DEBORAH 35 35 30 50 PE General: nad Neck: collar in place. transverse incision c/d/i. no hematoma. soft. supple. NEURO: GMNVI bilat. Strength 5/5 Problem List - Problems (1) Cervical spondylosis with radiculopathy Assessment/Plan: POD #1 s/p Cervical 4 & 5 corpectomies and restorationism of lordosis with reconstruction using PEEK cage insertion and anterior plating. His transient rise in WBC most likely attributed to the steroids (pre/intra/postoperatively). DEBORAH drain removed on rounds. Cont to wear your cervical collar as directed. Cleared for discharge home today. Patient to f/u w/ Dr. Donovan for post-operative check-up in 1-[address] Donovan, thank you for the opportunity to participate in your patient's care. Code(s): M47.22 - OTHER SPONDYLOSIS WITH RADICULOPATHY, CERVICAL REGION
--- NOTE | 2017-12-14 08:51 | PROC ---
Central Line Insertion - Procedure Note TIME OUT performed prior to this procedure with verbal confirmation of correct patient identity, correct side, agreement of the procedure, correct patient position, availability of necessary equipment. The consent form is complete and accurate. Risk of possible infection, bleeding and ave been discussed with the patient. Safety precautions based on patient history or medication use has been addressed. Area prepped with Chlorhexidine solution then draped using sterile barrier protection. Dark venous non-pulsatile flow noted from hub of needle. The catheter was introduced. Guide wire removed intact. Each port aspirated then flushed with sterile normal saline and capped. Line secured to skin with silk suture. Biopatch placed around base of line. Sterile occlusive dressing applied. No complications. Patient tolerated the procedure well. STAT chest xray ordered to confirm position and rule out pneumothorax
[2017-12-14] MEDS: RANITIDINE HCL 150 MG TABLET (FP) PO SCH (10:29)
[2017-12-14] MEDS ORDERED: ACETAMINOPHEN 1000 MG/100 ML VIAL (NON FORMULARY) IVPB PRN (10:53)
--- NOTE | 2017-12-14 10:57 | PN ---
Progress Note (short form) - Note Progress Note: Post op day1.S/P C4-C5 corpectomy under Ga uneventful.Patient stable and c/o pain score of 5-6/10 on Dilaudid master baker.Will continue master baker and add Ofirmev to it.Will f/u tomorrow.
[2017-12-14 13:15] VITALS: BP 128/5; PULSE 68
[2017-12-14 13:17] VITALS: TEMP 98.2
--- NOTE | 2017-12-14 13:20 | DS ---
Physical Exam: SUBJECTIVE: Patient seen and examined at bedside. Complaint of hiccups. No other complaints. OBJECTIVE: Vital Signs Period Temp Pulse Resp BP Sys/Lemos Pulse Ox Last 24 Hr 97.5 F-99 F 54-83 18-18 128-143/5-86 100-100 PHYSICAL EXAM Gen: Lying in bed, in NAD HEENT: NCAT, PERRLA, EOMI Neck:C-collar in place. Surgical dressing CDI. no JVD Cardiac: RRR, normal S1S2, no murmurs appreciated Pulm: CTA b/l Abd: soft, nontender, nondistended. Ext: 2+ pulses, no edema Neuro: CN 2-12 intact, strength 5/5 throughout, sensation preserved throughout, with less parasthesia in RUE LABS Laboratory Results - last 24 hr 12/13/17 12/14/17 12/14/17 18:42 06:00 06:00 WBC 18.3 H D RBC 4.26 Hgb 12.8 D Hct 37.1 MCV 87.1 MCH 29.9 MCHC 34.4 RDW 13.6 Plt Count 298 MPV 8.3 Absolute Neuts (auto) 13.7 Neutrophils % 75.1 D Lymphocytes % 15.3 D Monocytes % 9.5 Eosinophils % 0.0 D Basophils % 0.1 Nucleated RBC % 0 Sodium 138 Potassium 3.7 Chloride 103 Carbon Dioxide 26 Anion Gap 9 BUN 16 Creatinine 0.8 POC Glucometer 106 Random Glucose 100 D Calcium 8.5 HOSPITAL COURSE: Date of Admission:12/11/17 Date of Discharge: 12/14/17 Pt is a 27 y/o M with PMH fall from 5th floor scaffolding in 2015 who presents to ED sent by Dr. Donovan for C-spine surg on (12/13/2017) for radiculopathy of the RUE. Pt is admitted for surg. Pt had C-spine MRI demonstrating disc disease C3-6. Pt tolerated the surgery well. He had Cervical 4 & 5 corpectomies and episcopalian of lordosis with reconstruction using PEEK cage insertion and anterior plating. Prior to surg, pt was treated with dexamethasone, which alleviated some symptoms. Note that pt suffers from tobacco dependence and smokes 1/2 ppd. He was given a nicotine patch and cessation counselling. Pt was given f/u instructions. He is in NAD and is stable for d/c. Minutes to complete discharge: 30 Discharge Summary Reason For Visit: CERVICAL SPONDYOSIS WITH RADICULOPATHY Current Active Problems Cervical spondylosis with radiculopathy (Acute) Condition: Stable - Instructions Diet, Activity, Other Instructions: Dr. Donovan's Post Operative Instructions Physical Activity Resume your normal everyday activity as tolerated. No heavy lifting or exercise until seen by your surgeon. You may walk unlimited amounts and climb stairs. You may resume driving the car when you feel safe and comfortable behind the wheel and you are no longer wearing your brace. Do not operate a vehicle while taking narcotic medication. Brace Wear surgical collar 23 hr/day. Remove to shower only or while eating (breakfast /lunch/dinner) Wound Care Keep your incision clean, dry and covered at all times. Apply an occlusive dressing (Saran wrap or Tegaderm) when showering to avoid getting your incision wet. Do not submerge incision or apply ointments or creams. The lashon will be removed in the office in 10-14 days post-op. Incentive spirometry every hour as able. Diet There are no dietary restrictions. Eat healthy, high-fiber foods. Drink 6-8 glasses of liquid each day. This will assist in keeping your bowels regular. Pain Management You may take Tylenol or acetaminophen. Any pain prescription medication ordered should be taken as prescribed for moderate to severe pain. Call Dr Holbrook for any of the following: Severe pain not relieved by medication Fever of 101 or higher Excessive bleeding or drainage on dressing Inability to urinate Any chest pain or shortness of breath, seek Emergency Care. Call the office to confirm a post-operative appointment 12/21/17 Harman Donovan MD [facility] [place] [address] Referrals: Harman Donovan MD, FAANS [Staff Physician] - 1 Week Disposition: HOME - Home Medications Comprehensive Discharge Medication List: Ambulatory Orders Diclofenac Sodium [Diclofenac Sodium ER] 100 mg PO DAILY 12/06/17 Gabapentin 600 mg PO HS 12/06/17 Naproxen 250 mg PO PRN 12/06/17 Diazepam [Valium] 5 mg PO Q6H PRN #12 tablet MDD 4 12/14/17 Sennosides/Docusate Sodium [Senna-Docusate Sodium Tablet] 1 each PO DAILY PRN # 15 tablet 12/14/17 oxyCODONE HCL [Roxicodone -] 5 mg PO Q4H PRN #30 tablet MDD 6 12/14/17 This patient is new to me today: No Emergency Visit: No Critical Care patient: No - Discharge Referral Referred to [facility] No
[2017-12-14] MEDS ORDERED: PANTOPRAZOLE 40 MG TABLET (FP) PO ONE (13:32)
--- NOTE | 2017-12-14 14:15 | PN ---
Teaching Attending Note Name of Resident: Zen Acuña ATTENDING PHYSICIAN STATEMENT I saw and evaluated the patient. I reviewed the resident's note and discussed the case with the resident. I agree with the resident's findings and plan as documented with exceptions below. SUBJECTIVE: Patient seen and examined, neck pain controlled with medications, no fevers, chills, new cough, dyspnea, nausea, vomiting, abdominal or urinary symptoms. OBJECTIVE: Vital Signs Period Temp Pulse Resp BP Sys/Lemos Pulse Ox Last 24 Hr 97.5 F-99 F 54-68 18-18 128-143/5-86 100-100 Intake & Output 12/11/17 12/12/17 12/13/17 12/14/17 23:59 23:59 23:59 23:59 Intake Total 500 2625 4450 Output Total 510 350 Balance 500 2625 3940 -350 Weight 164 lb General: ambulating in hallway, no concerns Neck: C-spine collar, Chest: CTAB, no rales or wheezing Abdomen:soft, NT, ND extremities: no edema Abnormal Lab Results 12/14/17 06:00 WBC 18.3 H D ASSESSMENT AND PLAN: 27 cervical radiculopathy with progressive myelopathy s/p Cervical 4 & 5 corpectomies and jainism of lordosis with reconstruction using PEEK cage insertion and anterior plating -Cervical radiculopathy with progressive myelopathy s/p Cervical 4 & 5 corpectomies and jainism of lordosis with reconstruction using PEEK cage insertion and anterior platin -Leucocytosis, suspect steroid induced +/- surgical stress, no clinical evidence of infection Plan: Surgery input noted. D/c dialudid entry level civil engineer. Wound care and follow up instructions discussed by surgery PA Aly Santizo with patient, reinforced the same. Advised incentive spirometry and bowel regimen. d/c home with outpatient follow up. Plan discussed with patient and family at bedside in detail, all questions answered.
== END 2017-12-14 15:48 | disposition home or self-care (01) | DRG 321 ==
LOC: JER 09:50 → JERBED 13:39 → J8W 17:10
PROVIDERS: ADMIT Internal Medicine; ATTEND Hospitalist
PROC: 0RG20A0 Fusion of 2 or more Cervical Vertebral Joints with Interbody Fusion Device, Anterior Approach, Anterior Column, Open Approach (ICD-10-PCS; principal; 2017-12-13 08:00)
DX: M47.22 Other spondylosis with radiculopathy, cervical region (principal); M50.11 Cervical disc disorder with radiculopathy, high cervical region; F17.200 Nicotine dependence, unspecified, uncomplicated; F12.20 Cannabis dependence, uncomplicated; M25.519 Pain in unspecified shoulder; M25.569 Pain in unspecified knee; M54.5 Low back pain; D72.829 Elevated white blood cell count, unspecified; S13.161S Dislocation of C5/C6 cervical vertebrae, sequela; W18.39XS Other fall on same level, sequela; Z91.19 Patient's noncompliance with other medical treatment and regimen
CPT/HCPCS: 36415; 72125-TC; 72141-TC; 76000-TC-FY; 80048; 80053; 82962; 83735; 84100; 85025; 85610; 85730; 86850; 86900; 86901; 87389; 93005; 93010; 94760; 97116-GP; 97161-GP; 99284-25; J0131; J1644; J7030

== ENCOUNTER 2017-12-14 19:53 | Emergency (ER) | payer OTHER ==
[2017-12-14 19:58] VITALS: BP 120/78; PULSE 80; TEMP 98.2; BMI 23.6
--- NOTE | 2017-12-14 20:00 | PDOC ---
Rapid Medical Evaluation Chief Complaint: Respiratory Distress Time Seen by Provider: 12/14/17 19:55 Medical Evaluation: Allergies Allergy/AdvReac Type Severity Reaction Status Date / Time No Known Allergies Allergy Verified 12/11/17 09:58 12/14/17 19:55 S/P CERVICAL DISC REPAIR SURGERY by Dr. Berger c/o difficulty breathing. PE: mouth breathing. Patient alert ox3. + neck swelling - c-collar in place. patient able to speak. no stridor Plan: patient to the ER for further management. 12/14/17 20:00 Discharge Disposition - Diagnosis Neck pain, Cervical spondylosis with radiculopathy - Referrals - Patient Instructions - Post Discharge Activity
--- NOTE | 2017-12-14 20:06 | PDOC ---
Attending Attestation - [facility] HPI: 12/14/17 23:37 The patient is a 27 year old male presenting with his father, with a significant past medical history of asthma and a fall from a 5th story building , who presents to the emergency department complaining of worsening numbness and weakness in his right upper extremity, as well as shortness of breath. He notes that since 2016 he has had tingling in his right upper extremity but notes that over the last 6 months he has noticed worsening numbness. Numbness and tingling gets worse when he lies down. He notes that he has also noticed some mild numbness in his right lower extremity but no weakness. The patient had an MRI on 08/2017 which showed disk herniation. He denies urine and fecal incontinence. 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 The patient denies chest pain, headache or dizziness. Denies fever, chills, nausea, vomiting, diarrhea and constipation. Denies dysuria, frequency, urgency and hematuria. Allergies: None Past surgical history: Spinal surgery (12/13/2017) Social History: Marijuana use. Cigarette use (10 daily). No alcohol use. - Physicial Exam PE: 12/14/17 23:37 Constitutional: Awake, alert, oriented. No acute distress. Head: Normocephalic. Atraumatic Eyes: PERRL. EOMI. Conjunctivae are not pale. ENT: Mucous membranes are moist and intact. Posterior pharynx without exudates or erythema. Uvula midline. Neck: Supple. Full ROM. No lymphadenopathy. Cardiovascular: Regular rate. Regular rhythm. S1, S2 regular. Distal pulses are 2+ and symmetric. Pulmonary/Chest: No evidence of respiratory distress. Clear to auscultation bilaterally No wheezing, rales or rhonchi. Abdominal: Soft and non-distended. There is no tenderness. No rebound, guarding or rigidity. No organomegaly. No palpable masses. Good bowel sounds. Back: No CVA tenderness. Musculoskeletal: No edema. No cyanosis. No clubbing. Full range of motion in all extremities. Nocalf tenderness. Radial/pedal pulses are intact and 2+ bilaterally Skin: Skin is warm and dry. No petechiae. No purpura. Neurological: Alert and oriented to person, place, and time. Cranial nerves II -XII are grossly intact. Normal speech. Strength is grossly symmetric. No sensory deficits. Psychiatric: Good eye contact. Normal interaction, affect and behavior. <Felix Rivera - Last Filed: 12/14/17 23:37> - Resident Resident Name: Bud Dowling - ED Attending Attestation I have performed the following: I have examined & evaluated the patient, The case was reviewed & discussed with the resident, I agree w/resident's findings & plan, Exceptions are as noted - Medical Decision Making 12/14/17 20:06 I, Dr. Sole Pinto, DO, attest that this document has been prepared under my direction and personally reviewed by me in its entirety. I further attest, that it accurately reflects all work, treatment, procedures and medical decision -making performed by me. 12/14/17 22:07 a/p: 27yo male with difficulty swallowing and sob since being discharged after cervical spine surgery yesterday -speaking in full sentences -no stridor -no wheezing -no resp distress -appears in pain and uncomfortable -c-collar in place -neuro intact -worsening pain and feels his neck is swelling -will obtain cta neck to eval of sob/difficulty swallowing -concern for post-op hematoma -will give pain control -labs -will monitor and reassess 12/15/17 01:38 ct does not show any acute bleeding, hematoma, abscess, or airway occlusion mild soft tissue edema and air from surgery yesterday was seen case discussed with Dr. Donovan who does not recommend changing his pain medications at home recommends keeping the collar in place follow up as scheduled 12/15/17 01:[address] results and the plan with the patient and his father has valium and oxycodone at home <Sole Pinto - Last Filed: 12/15/17 01:40>
--- NOTE | 2017-12-14 20:23 | PDOC ---
History of Present Illness - History of Present Illness Initial Comments: 12/14/17 20:22 27 y/o M with h/o fall from 5th floor scaffolding in 2015 who , day 1 post op C3 -C6 fusion Tuesday (12/13/2017) for radiculopathy of the RUE, who p/w SOB, and anterior/posterior neck pain. Now with unremitting, sharp, shooting, anterior and posterior neck pain, worse with movement, and shortness of breath at rest. Patient was discontinued from [facility] earlier today (12/16/16) hospital on Oxycodone 5 mg, and Valium, which patient reports he has not taken. D/c'd Dilaudid pump today. Recent C-spine MRI demonstrating disc disease C3-6. . Denies F/C, neck stiffness, nuchal rigidity, N/V, CP, cough, hemoptysis, leg pain/swelling, abdominal pain, diarrhea, constipation, urinary complaints, weakness, lightheadedness, sensory changes. PMHx: as noted above. Denies h/o PE, DVT. Cervical 4 & 5 corpectomies and orthodox of lordosis with reconstruction using PEEK cage insertion and anterior plating by dr. Jacobs neurosurgery ROS: as noted above SHx: Tobacco use 1/2 ppd. Denies IVDA. <Bud Dowling - Last Filed: 12/14/17 21:37> <Sole Pinto - Last Filed: 12/15/17 01:42> - General Chief Complaint: Respiratory Distress Stated Complaint: PAIN/ S.O.B Time Seen by Provider: 12/14/17 19:55 Past History - Past Medical History Asthma: Yes Cancer: No Cardiac Disorders: No COPD: No CHF: No HTN: No - Suicide/Smoking/Psychosocial Hx Smoking History: Never smoked Have you smoked in the past 12 months: No Number of Cigarettes Smoked Daily: 10 Information on smoking cessation initiated: No 'Breaking Loose' booklet given: 12/06/17 Hx Alcohol Use: No Drug/Substance Use Hx: No Substance Use Type: Marijuana Hx Substance Use Treatment: Yes <Bud Dowling - Last Filed: 12/14/17 21:37> <Sole Pinto - Last Filed: 12/15/17 01:42> - Past Medical History Allergies/Adverse Reactions: Allergies Allergy/AdvReac Type Severity Reaction Status Date / Time No Known Allergies Allergy Verified 12/14/17 19:58 Home Medications: Ambulatory Orders Diclofenac Sodium [Diclofenac Sodium ER] 100 mg PO DAILY 12/06/17 Gabapentin 600 mg PO HS 12/06/17 Naproxen 250 mg PO PRN 12/06/17 Diazepam [Valium] 5 mg PO Q6H PRN #12 tablet MDD 4 12/14/17 Sennosides/Docusate Sodium [Senna-Docusate Sodium Tablet] 1 each PO DAILY PRN # 15 tablet 12/14/17 oxyCODONE HCL [Roxicodone -] 5 mg PO Q4H PRN #30 tablet MDD 6 12/14/17 Review of Systems - Review of Systems Comments:: 12/14/17 21:21 GENERAL/CONSTITUTIONAL: No fever or chills. No weakness. HEAD, EYES, EARS, NOSE AND THROAT: + Neck pain. No change in vision. No ear pain or discharge. CARDIOVASCULAR:+ SOB. No chest pain. RESPIRATORY: No cough, wheezing, or hemoptysis. GASTROINTESTINAL: No nausea, vomiting, diarrhea or constipation. GENITOURINARY: No dysuria, frequency, or change in urination. MUSCULOSKELETAL: No joint or muscle swelling or pain. No neck or back pain. SKIN: No rash NEUROLOGIC: No headache, vertigo, loss of consciousness, or change in strength/ sensation. ENDOCRINE: No increased thirst. No abnormal weight change HEMATOLOGIC/LYMPHATIC: No anemia, easy bleeding, or history of blood clots. ALLERGIC/IMMUNOLOGIC: No hives or skin allergy. <Bud Dowling - Last Filed: 12/14/17 21:37> *Physical Exam - Vital Signs Last Vital Signs Temp Pulse Resp BP Pulse Ox 98.2 F 80 16 120/78 98 12/14/17 19:57 12/14/17 19:57 12/14/17 19:57 12/14/17 19:57 12/14/17 19:57 - Physical Exam Comments: 12/14/17 21:21 GENERAL: Awake, alert, and fully oriented, in no acute distress HEAD: No signs of trauma, normocephalic, atraumatic EYES: PERRLA, EOMI, sclera anicteric, conjunctiva clear ENT: Auricles normal inspection, hearing grossly normal, nares patent, oropharynx clear without exudates. Moist mucosa NECK: Cervical collar in place. Horizontal anterior neck incision scar measuring 4 cm and c/d/i, with absent drainage d/c .limited ROM, supple, no lymphadenopathy, JVD, or masses LUNGS: No distress, speaks full sentences, clear to auscultation bilaterally HEART: Regular rate and rhythm, normal S1 and S2, no murmurs, rubs or gallops, peripheral pulses normal and equal bilaterally. EXTREMITIES : Normal inspection, Normal range of motion, no edema. No clubbing or cyanosis. NEUROLOGICAL: Cranial nerves II through XII grossly intact. Normal speech, normal gait, no focal sensorimotor deficits SKIN: Warm, Dry, normal turgor, no rashes or lesions noted <Bud Dowling - Last Filed: 12/14/17 21:37> - Vital Signs Last Vital Signs Temp Pulse Resp BP Pulse Ox 98.2 F 80 16 120/78 98 12/14/17 19:57 12/14/17 19:57 12/14/17 19:57 12/14/17 19:57 12/14/17 19:57 <Sole Pinto - Last Filed: 12/15/17 01:42> ED Treatment Course - LABORATORY CBC & Chemistry Diagram: 12/14/17 21:48 12/14/17 22:48 - ADDITIONAL ORDERS Additional order review: Laboratory Results 12/14/17 12/14/17 12/14/17 22:48 21:48 21:48 PT with INR 12.60 INR 1.12 Sodium 137 Cancelled Potassium 3.7 Cancelled Chloride 101 Cancelled Carbon Dioxide 28 Cancelled Anion Gap 8 Cancelled BUN 9 D Cancelled Creatinine 0.6 L D Cancelled Creat Clearance w eGFR > 60 Cancelled Random Glucose 87 Cancelled Calcium 8.7 Cancelled Total Bilirubin 0.5 D Cancelled AST 24 D Cancelled ALT 39 Cancelled Alkaline Phosphatase 46 Cancelled Total Protein 6.9 Cancelled Albumin 3.7 Cancelled 12/14/17 21:48 RBC 4.48 MCV 87.7 MCHC 33.8 RDW 13.2 MPV 8.5 Neutrophils % 77.9 Lymphocytes % 11.6 D Monocytes % 10.1 Eosinophils % 0.1 D Basophils % 0.3 - Medications Given in the ED: ED Medications Discontinued Medications Generic Name Dose Route Start Last Admin Trade Name Freq PRN Reason Stop Dose Admin Morphine Sulfate 4 mg 12/14/17 21:45 12/14/17 21:53 Morphine Injection - IVPUSH 12/14/17 21:46 4 mg ONCE ONE Administration Ondansetron HCl 4 mg 12/14/17 21:45 12/14/17 21:53 Zofran Injection IVPB 12/14/17 21:46 4 mg ONCE ONE Administration Oxycodone/Acetaminophen 2 combo 12/14/17 21:26 12/14/17 21:34 Percocet 5/325 - PO 12/14/17 21:27 2 combo ONCE ONE Administration <Sole Pinto - Last Filed: 12/15/17 01:42> Medical Decision Making - Medical Decision Making 12/14/17 21:38 27 y/o M with h/o fall from 5th floor scaffolding in 2015 who with C3-C6 C spine injury, day 1 post op Cervical 4 & 5 corpectomies and orthodox of lordosis fusion Tuesday (12/13/2017) indicated for radiculopathy of the RUE, who p /w SOB, and anterior/posterior neck pain beginning today. VSS, AF, A&Ox3, NAD. Will obtain CT imaging to r/o expanding hematoma, abscess, or deep space infection. Patient with absent stridor, labored breathing, or other evidence of respiratory compromise. Will obtain basic labs, EKG, CXR. ED Course: <Bud Dowling - Last Filed: 12/14/17 21:37> *DC/Admit/Observation/Transfer <Bud Dowling - Last Filed: 12/14/17 21:37> - Discharge Dispostion Decision to Admit order: No <Sole Pinto - Last Filed: 12/15/17 01:42> Diagnosis at time of Disposition: Neck pain, Cervical spondylosis with radiculopathy, Post-op pain - Discharge Dispostion Disposition: HOME Condition at time of disposition: Stable - Referrals Referrals: Harman Donovan MD, [facility] [Staff Physician] - Tony Burkett MD [Staff Physician] - - Patient Instructions Printed Discharge Instructions: DI for Neck Pain Additional Instructions: Please take all medications as prescribed. Please wear the collar at all times. Please follow up with your surgeon as scheduled. Please return to the ED with any further concerns.
[2017-12-14] MEDS ORDERED: morphine CARPU-JECT 4 MG/1 ML DISP.SYRIN IVPUSH ONE (21:45)
[2017-12-14] MEDS ORDERED: ONDANSETRON 4 MG/2 ML VIAL IVPB ONE (21:45)
[2017-12-14] MEDS ORDERED: ONDANSETRON 4 MG/2 ML VIAL ONE (21:49)
[2017-12-14] MEDS ORDERED: morphine SULFATE 4 MG/ML VIAL ONE (21:49)
[2017-12-14 22:07] LABS: BASO % 0.3 % (0-2.0); EOS % 0.1 % (0-4.5); HEMATOCRIT 39.3 % (35.4-49); HEMOGLOBIN 13.3 GM/dL (11.7-16.9); LYMPH % 11.6 % (8-40); MCH 29.6 pg (25.7-33.7); MCHC 33.8 g/dl (32.0-35.9); MEAN CELL VOLUME 87.7 fl (80-96); MEAN PLT VOLUME 8.5 fl (7.5-11.1); MONO % 10.1 % (3.8-10.2); NEUT % 77.9 % (42.8-82.8); PLATELET COUNT 317 K/MM3 (134-434); RBC 4.48 M/mm3 (4.00-5.60); RDW 13.2 % (11.9-15.9); WHITE BLOOD COUNT 18.2 K/mm3 (4.0-10.0)
[2017-12-14 22:23] LABS: INR 1.12 (0.82-1.09); PROTHROMBIN TIME (PATIENT) 12.6 SEC (9.7-13.0)
[2017-12-14 22:32] LABS: ANISOCYTOSIS 1+; MACROCYTOSIS 1+
[2017-12-14 22:33] LABS: PLATELET ESTIMATE ADEQUATE
[2017-12-14 23:23] LABS: ALBUMIN 3.7 g/dl (3.4-5.0); ALK PHOS 46 U/L (45-117); ANION GAP 8 (8-16); BILIRUBIN,TOTAL 0.5 mg/dL (0.2-1.0); BLOOD UREA NITROGEN 9 mg/dL (7-18); CALCIUM 8.7 mg/dL (8.5-10.1); CHLORIDE 101 mmol/L (98-107); CO2 28 mmol/L (21-32); CREATININE 0.6 mg/dL (0.7-1.3); GLUCOSE,RANDOM 87 mg/dL (74-106); POTASSIUM 3.7 mmol/L (3.5-5.1); SGOT/AST 24 U/L (15-37); SGPT/ALT 39 U/L (12-78); SODIUM 137 mmol/L (136-145); TOT PROT 6.9 g/dl (6.4-8.2)
[2017-12-15] MEDS ORDERED: ONDANSETRON *ODT* 4 MG TABLET SL ONE (01:37)
--- NOTE | 2017-12-15 01:38 | PDOC ---
*Physical Exam - Vital Signs Last Vital Signs Temp Pulse Resp BP Pulse Ox 98.2 F 80 16 120/78 98 12/14/17 19:57 12/14/17 19:57 12/14/17 19:57 12/14/17 19:57 12/14/17 19:57 ED Treatment Course - LABORATORY CBC & Chemistry Diagram: 12/14/17 21:48 12/14/17 22:48 - ADDITIONAL ORDERS Additional order review: Laboratory Results 12/14/17 12/14/17 12/14/17 22:48 21:48 21:48 PT with INR 12.60 INR 1.12 Sodium 137 Cancelled Potassium 3.7 Cancelled Chloride 101 Cancelled Carbon Dioxide 28 Cancelled Anion Gap 8 Cancelled BUN 9 D Cancelled Creatinine 0.6 L D Cancelled Creat Clearance w eGFR > 60 Cancelled Random Glucose 87 Cancelled Calcium 8.7 Cancelled Total Bilirubin 0.5 D Cancelled AST 24 D Cancelled ALT 39 Cancelled Alkaline Phosphatase 46 Cancelled Total Protein 6.9 Cancelled Albumin 3.7 Cancelled 12/14/17 21:48 RBC 4.48 MCV 87.7 MCHC 33.8 RDW 13.2 MPV 8.5 Neutrophils % 77.9 Lymphocytes % 11.6 D Monocytes % 10.1 Eosinophils % 0.1 D Basophils % 0.3 - Medications Given in the ED: ED Medications Discontinued Medications Generic Name Dose Route Start Last Admin Trade Name Jose Antonioq PRN Reason Stop Dose Admin Morphine Sulfate 4 mg 12/14/17 21:45 12/14/17 21:53 Morphine Injection - IVPUSH 12/14/17 21:46 4 mg ONCE ONE Administration Ondansetron HCl 4 mg 12/14/17 21:45 12/14/17 21:53 Zofran Injection IVPB 12/14/17 21:46 4 mg ONCE ONE Administration Oxycodone/Acetaminophen 2 combo 12/14/17 21:26 12/14/17 21:34 Percocet 5/325 - PO 12/14/17 21:27 2 combo ONCE ONE Administration *DC/Admit/Observation/Transfer Diagnosis at time of Disposition: Neck pain, Cervical spondylosis with radiculopathy - Discharge Dispostion Disposition: HOME Condition at time of disposition: Improved Decision to Admit order: No - Referrals - Patient Instructions - Post Discharge Activity
[2017-12-15] MEDS ORDERED: ONDANSETRON *ODT* 4 MG TABLET ONE (01:42)
[2017-12-15] MEDS ORDERED: ONDANSETRON 4 MG/2 ML VIAL IVPUSH ONE (01:44)
--- NOTE | 2017-12-15 01:45 | PDOC ---
*Physical Exam - Vital Signs Last Vital Signs Temp Pulse Resp BP Pulse Ox 98.2 F 80 16 120/78 98 12/14/17 19:57 12/14/17 19:57 12/14/17 19:57 12/14/17 19:57 12/14/17 19:57 ED Treatment Course - LABORATORY CBC & Chemistry Diagram: 12/14/17 21:48 12/14/17 22:48 - ADDITIONAL ORDERS Additional order review: Laboratory Results 12/14/17 12/14/17 12/14/17 22:48 21:48 21:48 PT with INR 12.60 INR 1.12 Sodium 137 Cancelled Potassium 3.7 Cancelled Chloride 101 Cancelled Carbon Dioxide 28 Cancelled Anion Gap 8 Cancelled BUN 9 D Cancelled Creatinine 0.6 L D Cancelled Creat Clearance w eGFR > 60 Cancelled Random Glucose 87 Cancelled Calcium 8.7 Cancelled Total Bilirubin 0.5 D Cancelled AST 24 D Cancelled ALT 39 Cancelled Alkaline Phosphatase 46 Cancelled Total Protein 6.9 Cancelled Albumin 3.7 Cancelled 12/14/17 21:48 RBC 4.48 MCV 87.7 MCHC 33.8 RDW 13.2 MPV 8.5 Neutrophils % 77.9 Lymphocytes % 11.6 D Monocytes % 10.1 Eosinophils % 0.1 D Basophils % 0.3 - Medications Given in the ED: ED Medications Discontinued Medications Generic Name Dose Route Start Last Admin Trade Name Jose Antonioq PRN Reason Stop Dose Admin Morphine Sulfate 4 mg 12/14/17 21:45 12/14/17 21:53 Morphine Injection - IVPUSH 12/14/17 21:46 4 mg ONCE ONE Administration Ondansetron HCl 4 mg 12/14/17 21:45 12/14/17 21:53 Zofran Injection IVPB 12/14/17 21:46 4 mg ONCE ONE Administration Oxycodone/Acetaminophen 2 combo 12/14/17 21:26 12/14/17 21:34 Percocet 5/325 - PO 12/14/17 21:27 2 combo ONCE ONE Administration *DC/Admit/Observation/Transfer Diagnosis at time of Disposition: Neck pain, Cervical spondylosis with radiculopathy - Discharge Dispostion Disposition: HOME Condition at time of disposition: Improved Decision to Admit order: No - Referrals - Patient Instructions Printed Discharge Instructions: DI for Neck Pain Additional Instructions: Come back to the Emergency Department for any new, worsening or concerning symptom. - Post Discharge Activity
--- NOTE | 2017-12-15 11:29 | EKG ---
Test Reason : Blood Pressure : / mmHG Vent. Rate : 069 BPM Atrial Rate : 069 BPM P-R Int : 158 ms QRS Dur : 098 ms QT Int : 376 ms P-R-T Axes : 060 084 030 degrees QTc Int : 402 ms NORMAL SINUS RHYTHM NONSPECIFIC T WAVE ABNORMALITY ABNORMAL ECG WHEN COMPARED WITH ECG OF 11-DEC-2017 12:23, NONSPECIFIC T WAVE ABNORMALITY NOW EVIDENT IN INFERIOR LEADS NONSPECIFIC T WAVE ABNORMALITY NOW EVIDENT IN LATERAL LEADS Confirmed by ESME OWUSU MD ([id number]) on 12/15/2017 11:29:19 AM Referred By: Confirmed By:ESME OWUSU MD
== END 2017-12-15 01:58 | disposition home or self-care (01) ==
LOC: JER 19:53
PROC: 3E033NZ Introduction of Analgesics, Hypnotics, Sedatives into Peripheral Vein, Percutaneous Approach (ICD-10-PCS; principal; 2017-12-14)
PROC: 3E033GC Introduction of Other Therapeutic Substance into Peripheral Vein, Percutaneous Approach (ICD-10-PCS; 2017-12-14)
DX: G89.18 Other acute postprocedural pain (principal); M47.892 Other spondylosis, cervical region; M54.2 Cervicalgia; J45.909 Unspecified asthma, uncomplicated
CPT/HCPCS: 36415; 70498-TC; 71045-TC-FY; 71275-TC; 80053; 85025; 85610; 93005; 93010; 99283-25; Q0162